=== PATIENT | male | born 1995 | race Caucasian/White ===

== ENCOUNTER → 2018-04-24 | Outpatient (CLI) | payer OTHER ==
--- NOTE | 2018-04-24 16:08 | US ---
EXAMINATION TYPE: US abdomen complete DATE OF EXAM: 04/24/2018 COMPARISON: NONE CLINICAL HISTORY: R10.11 RUQ ABD PAIN. Abd pain, nausea, vomiting EXAM MEASUREMENTS: Liver Length: 12.5 cm Gallbladder Wall: 0.2 cm CBD: 0.2 cm Spleen: 11.0 cm Right Kidney: 9.6 x 4.3 x 5.4 cm Left Kidney: 9.1 x 4.4 x 5.1 cm Pancreas: Obscured by bowel gas, visualized portions wnl Liver: wnl Gallbladder: wnl Evidence for sonographic Kaiser's sign: No CBD: wnl Spleen: wnl Right Kidney: No hydronephrosis or masses seen Left Kidney: No hydronephrosis or masses seen Upper IVC: wnl Abd Aorta: wnl IMPRESSION: 1. Normal abdomen ultrasound
== END | disposition home or self-care (01) ==
LOC: RADUSWWP 14:49
PROVIDERS: ATTEND Family Medicine
DX: R10.11 Right upper quadrant pain (principal)
CPT/HCPCS: 76700; 80053; 82150; 83690; 84550; 85025

== ENCOUNTER → 2018-05-01 | Outpatient (CLI) | payer OTHER ==
--- NOTE | 2018-05-01 10:02 | NM ---
EXAMINATION TYPE: NM hepatobiliary w EF DATE OF EXAM: 05/01/2018 COMPARISON: Correlation ultrasound 04/24/2018 HISTORY: 22-year-old male pain, cholecystitis TECHNIQUE: After the intravenous administration of 5.3 mCi Tc 99m Mebrofenin hepatobiliary scintigrap hy is performed. Immediate images post injection. FINDINGS: There is satisfactory initial accumulation of tracer by the liver. The gallbladder is visualized wit hin 8 minutes. The small bowel activity is noted after oral Ensure administration. At one hour 8 oun miriam of oral ensure plus is given to mimic CCK and gallbladder ejection fraction is calculated at 66 % , in the normal range. Therefore there is no scintigraphic evidence of cystic or common bile duct ob struction to suggest acute cholecystitis or gallbladder dyskinesia. IMPRESSION: Exam is within normal limits.
== END | disposition home or self-care (01) ==
LOC: RADNMMAIN 06:56
PROVIDERS: ATTEND Family Medicine
DX: K82.4 Cholesterolosis of gallbladder (principal)
CPT/HCPCS: 78226; A9537

== ENCOUNTER 2018-05-02 20:32 | Emergency (ER) | payer OTHER ==
[2018-05-02 20:48] VITALS: RESP 18
[2018-05-02] MEDS ORDERED: SODIUM CHLORIDE 0.9% 500 ML IV STA (21:03)
--- NOTE | 2018-05-02 21:11 | ED ---
Abdominal Pain HPI - General Chief Complaint: Abdominal Pain Stated Complaint: Abd pain Time Seen by Provider: 05/02/18 20:51 Source: patient Mode of arrival: ambulatory Limitations: no limitations - History of Present Illness Initial Comments: 22-year-old male patient presents to the emergency department today for evaluation of abdominal pain 2 weeks. Patient states that he has had 3 episodes of abdominal pain over the last couple of weeks. States that today the pain is lasted longer than it ever has. Patient describes the pain as a dull aching pain. States it initially was in his upper abdomen but now has moved to his lower abdomen. Patient states he has had decreased appetite today. He did have a vomiting episode earlier today. States that he had a very small bowel movement this morning that was "loose". Patient denies any fevers or chills. Patient's physician has been evaluating the pain patient did receive abdominal ultrasound and HIDA scan which were both negative for any acute abnormalities. Had labs done on 04/24/18 which were unremarkable. Patient is healthy with a benign past medical history. Denies any recent travel or sick contacts. Denies any recent change to his diet. Denies any weight loss. Patient was started on omeprazole 2 weeks ago, it has not helped. Patient denies any recent rash, shortness breath, chest pain, back pain, numbness, tingling, dizziness, weakness, hematuria, dysuria, urinary urgency, urinary frequency, headache, visual changes, or any other complaints. - Related Data Previous Rx's Medication Instructions Recorded Ondansetron [Zofran ODT] 4 mg PO Q8HR PRN #10 tab 05/02/18 Allergies Allergy/AdvReac Type Severity Reaction Status Date / Time No Known Allergies Allergy Verified 05/02/18 20:46 Review of Systems ROS Statement: Those systems with pertinent positive or pertinent negative responses have been documented in the HPI. ROS Other: All systems not noted in ROS Statement are negative. Past Medical History Past Medical History: No Reported History History of Any Multi-Drug Resistant Organisms: None Reported Past Surgical History: Orthopedic Surgery Past Psychological History: No Psychological Hx Reported Smoking Status: Never smoker Past Alcohol Use History: None Reported Past Drug Use History: None Reported General Exam Limitations: no limitations General appearance: alert, in no apparent distress, other (This is a well- developed, well-nourished adult male patient in no acute distress. Vital signs upon presentation are temperature 98.2F, pulse 112, respirations 18, blood pressure 121/82, pulse ox 98% on room air.) Eye exam: Present: normal appearance, PERRL, EOMI. Absent: scleral icterus, conjunctival injection, periorbital swelling ENT exam: Present: normal exam, normal oropharynx, mucous membranes moist Respiratory exam: Present: normal lung sounds bilaterally. Absent: respiratory distress, wheezes, rales, rhonchi, stridor Cardiovascular Exam: Present: regular rate, normal rhythm, normal heart sounds. Absent: systolic murmur, diastolic murmur, rubs, gallop, clicks GI/Abdominal exam: Present: soft, normal bowel sounds. Absent: distended, tenderness, guarding, rebound, rigid Neurological exam: Present: alert, oriented X3, CN II-XII intact Psychiatric exam: Present: normal affect, normal mood Skin exam: Present: warm, dry, intact, normal color. Absent: rash Course Vital Signs 05/02/18 05/02/18 20:46 23:06 Temperature 98.2 F 98.9 F Pulse Rate 112 H 78 Respiratory 18 18 Rate Blood Pressure 121/82 131/73 O2 Sat by Pulse 98 98 Oximetry Medical Decision Making - Medical Decision Making 22-year-old male patient presented to the emergency department today with complaints of abdominal pain. Physical examination was relatively unremarkable. Patient's abdomen was soft and nontender. Vital signs are stable. Labs reviewed and are unremarkable. X-ray of the abdomen showed no acute intra-abdominal abnormalities. Patient did have a HIDA scan yesterday which showed normal gallbladder function. He had abdominal ultrasound and labs performed within the last month which were also normal. I did discuss findings and results with the patient and his parent. I did discuss follow-up with GI specialty for further evaluation. Patient is currently taking omeprazole he is instructed to continue this as he has only been taking it for one week. Return parameters were discussed in detail. He verbalizes understanding and agreed with this plan. - Lab Data Result diagrams: 05/02/18 20:17 05/02/18 20:17 Lab Results 05/02/18 05/02/18 05/02/18 Range/Units 20:17 20:17 20:17 WBC 8.3 (4.0-11.0) k/uL RBC 5.31 (4.30-5.90) m/uL Hgb 15.0 (13.0-17.5) gm/dL Hct 44.2 (39.0-53.0) % MCV 83.2 (80.0-100.0) fL MCH 28.3 (25.0-35.0) pg MCHC 34.0 (31.0-37.0) g/dL RDW 12.9 (11.5-15.5) % Plt Count 228 (150-450) k/uL Neutrophils % 76 % Lymphocytes % 16 % Monocytes % 5 % Eosinophils % 1 % Basophils % 0 % Neutrophils # 6.3 (1.3-7.7) k/uL Lymphocytes # 1.3 (1.0-4.8) k/uL Monocytes # 0.4 (0-1.0) k/uL Eosinophils # 0.1 (0-0.7) k/uL Basophils # 0.0 (0-0.2) k/uL Sodium 141 (137-145) mmol/L Potassium 3.8 (3.5-5.1) mmol/L Chloride 105 (98-107) mmol/L Carbon Dioxide 24 (22-30) mmol/L Anion Gap 12 mmol/L BUN 11 (9-20) mg/dL Creatinine 0.80 (0.66-1.25) mg/dL Est GFR (CKD-EPI)AfAm >90 (>60 ml/min/1.73 sqM) Est GFR (CKD-EPI)NonAf >90 (>60 ml/min/1.73 sqM) Glucose 114 H (74-99) mg/dL Calcium 10.5 H (8.4-10.2) mg/dL Total Bilirubin 1.4 H (0.2-1.3) mg/dL AST 20 (17-59) U/L ALT 24 (21-72) U/L Alkaline Phosphatase 53 (38-126) U/L C-Reactive Protein <5.0 (<10.0) mg/L Total Protein 8.3 H (6.3-8.2) g/dL Albumin 5.3 H (3.5-5.0) g/dL Amylase 45 (30-110) U/L Lipase 77 (23-300) U/L Urine Color Light Yellow Urine Appearance Clear (Clear) Urine pH 8.0 (5.0-8.0) Ur Specific [place] 1.008 (1.001-1.035) Urine Protein Negative (Negative) Urine Glucose (UA) Negative (Negative) Urine Ketones Negative (Negative) Urine Blood Negative (Negative) Urine Nitrite Negative (Negative) Urine Bilirubin Negative (Negative) Urine Urobilinogen <2.0 (<2.0) mg/dL Ur Leukocyte Esterase Negative (Negative) - Radiology Data Radiology results: report reviewed, image reviewed KUB x-ray of the abdomen is obtained. There is normal bowel gas pattern. No suspicious air-fluid levels or differential air fluid levels are present. No free air is present. Psoas margins are normal. No organomegaly is present. Impression by Dr. Wilson shows unremarkable abdomen. Disposition Clinical Impression: Abdominal pain Disposition: HOME SELF-CARE Condition: Good Instructions: Abdominal Pain (ED) Additional Instructions: Start with clear liquid diet and advance as tolerated. Follow up with GI specialist for further evaluation. Follow-up with your primary care physician for recheck in 1-2 days. Return here immediately for any new, worsening, or concerning symptoms. Prescriptions: Ondansetron [Zofran ODT] 4 mg PO Q8HR PRN #10 tab PRN Reason: Nausea Is patient prescribed a controlled substance at d/c from ED?: No Referrals: Az Sorto MD [Primary Care Provider] - 1-2 days Reynaldo Rivera MD [STAFF PHYSICIAN] - 1-2 days Time of Disposition: 22:55
[2018-05-02 21:35] LABS: Appearance,Urine Clear (Clear); Basophils % (A) 0 %; Bilirubin,Urine Negative (Negative); Blood,Urine Negative (Negative); Color,Urine Light Yellow; Eosinophils # (A) 0.1 k/uL (0-0.7); Eosinophils % (A) 1 %; Glucose,Urine (UA) Negative (Negative); HCT 44.2 % (39.0-53.0); Ketones,Urine Negative (Negative); Leukocyte Esterase,Urine Negative (Negative); Lymphocytes # (A) 1.3 k/uL (1.0-4.8); Lymphocytes % (A) 16 %; MCH 28.3 pg (25.0-35.0); MCV 83.2 fL (80.0-100.0); Mean Platelet Volume 6.8; Monocytes # (A) 0.4 k/uL (0-1.0); Monocytes % (A) 5 %; Neutrophils # (A) 6.3 k/uL (1.3-7.7); Neutrophils % (A) 76 %; Nitrite,Urine Negative (Negative); Platelet Count 228 k/uL (150-450); Protein,Urine Negative (Negative); RBC 5.31 m/uL (4.30-5.90); RDW 12.9 % (11.5-15.5); Specific Gravity,Urine 1.008 (1.001-1.035); Urobilinogen,Urine <2.0 mg/dL (<2.0); WBC 8.3 k/uL (4.0-11.0)
[2018-05-02 21:46] LABS: ALT 24 U/L (21-72); AST 20 U/L (17-59); Albumin 5.3 g/dL (3.5-5.0); Alkaline Phosphatase 53 U/L (38-126); Amylase 45 U/L (30-110); Anion Gap 12 mmol/L; Blood Urea Nitrogen 11 mg/dL (9-20); C Reactive Protein <5.0 mg/L (<10.0); Calcium 10.5 mg/dL (8.4-10.2); Carbon Dioxide 24 mmol/L (22-30); Chloride 105 mmol/L (98-107); Glucose 114 mg/dL (74-99); Lipase 77 U/L (23-300); Potassium 3.8 mmol/L (3.5-5.1); Sodium 141 mmol/L (137-145); Total Bilirubin 1.4 mg/dL (0.2-1.3); Total Protein 8.3 g/dL (6.3-8.2)
--- NOTE | 2018-05-02 22:02 | XR ---
EXAMINATION TYPE: XR KUB DATE OF EXAM: 05/02/2018 COMPARISON: None INDICATION: Abdomen pain TECHNIQUE: Single view abdomen upright view FINDINGS: There is a normal bowel gas pattern. No suspicious air-fluid levels or differential air-fluid levels are present. No free air is present. Psoas margins are normal. No organomegaly is present. IMPRESSION: 1. Unremarkable Abdomen
[2018-05-02 23:07] VITALS: BP 131/73; PULSE 78; TEMP 98.9
== END 2018-05-02 23:07 | disposition home or self-care (01) ==
LOC: EC 20:32
DX: R10.9 Unspecified abdominal pain (principal); R11.10 Vomiting, unspecified; Z98.890 Other specified postprocedural states
CPT/HCPCS: 36415; 74018; 80053; 81003; 82150; 83690; 85025; 86140; 99284

== ENCOUNTER → 2018-05-08 | Outpatient (CLI) | payer OTHER ==
--- NOTE | 2018-05-08 10:47 | FL ---
EXAMINATION TYPE: FL small bowel follow through DATE OF EXAM: 05/08/2018 CLINICAL HISTORY: Abdominal pain with nausea. Pain comes and goes. No relief with antireflux medicati on. TECHNIQUE: A single contrast small bowel follow through is performed utilizing barium. A total of 31 seconds of fluoroscopic time was utilized during procedure. 9 images are saved to PACS. COMPARISON: Abdominal x-ray May 02, 2018. FINDINGS: Pouch Maker image of the abdomen shows no gross abnormality. The patient then drank contrast. The small bowel study shows normal transit to the colon in less than 40 minutes. There is a normal mucosal fold pattern throughout the small bowel. There is no evidenc e of any stricture or filling defect noted. The terminal ileum is spotted and appears unremarkable. IMPRESSION: Normal small bowel follow through.
== END | disposition home or self-care (01) ==
LOC: RADFLMAIN 08:56
DX: R10.9 Unspecified abdominal pain (principal)
CPT/HCPCS: 74250

== ENCOUNTER → 2024-03-29 | Outpatient (CLI) | payer BC ==
[2024-03-30 06:22] LABS: Alternaria alternata IgE <0.10 kU/L; Aspergillus fumagatus IgE <0.10 kU/L; Birch IgE <0.10 kU/L; Cat Epith & Dander IgE 0.75 kU/L; Cladosporian herbarum IgE <0.10 kU/L; Cockroach IgE <0.10 kU/L; Dermato. farinae IgE 6.93 kU/L; Dog Dander IgE <0.10 kU/L; Egg White IgE <0.10 kU/L; Maple (Box Elder) IgE <0.10 kU/L; Oak IgE <0.10 kU/L; Peanut IgE <0.10 kU/L; Ragweed,Common IgE 0.78 kU/L; Soybean IgE <0.10 kU/L
[2024-03-30 12:41] LABS: Pork IgE Class CLASS 0
[2024-03-30 12:42] LABS: Aureo. pullulans IgE <0.10 kU/L (<0.10); Aureo. pullulans IgE Class CLASS 0; Avocado Class CLASS 0; Banana IgE Class CLASS 0; Beef IgE <0.10 kU/L (<0.10); Beef IgE Class CLASS 0; Candida albicans IgE Class CLASS 0; Chicken IgE Class CLASS 0; Com. Pigweed IgE <0.10 kU/L (<0.10); Com. Pigweed IgE Class CLASS 0; Cottonwood IgE <0.10 kU/L (<0.10); English Plantain IgE Class CLASS 0; Epicoccum purpurascens Class CLASS 0; Epicoccum purpurascens IgE <0.10 kU/L (<0.10); Hazelnut IgE <0.10 kU/L (<0.10); Hazelnut IgE Class CLASS 0; Johnson Grass IgE Class CLASS 2; Kiwi IgE <0.10 kU/L (<0.10); Kiwi IgE Class CLASS 0; Lamb's Quarter IgE <0.10 kU/L (<0.10); Lamb's Quarter IgE Class CLASS 0; Latex IgE Class CLASS 0; Mucor racemosus IgE <0.10 kU/L (<0.10); Mucor racemosus IgE Class CLASS 0; Potato IgE <0.10 kU/L (<0.10); Potato IgE Class CLASS 0; Rhizopus nigricans IgE <0.10 kU/L (<0.10); Rhizopus nigricans IgE Class CLASS 0; S.rostrata/Helminth Class CLASS 0; S.rostrata/Helminth IgE <0.10 kU/L (<0.10); Sycamore(Mpl.Lf) IgE <0.10 kU/L (<0.10); Sycamore(Mpl.Lf) IgE Class CLASS 0; Timothy Grass IgE 5.41 kU/L (<0.10); Timothy Grass IgE Class CLASS 3; Walnut Tree IgE <0.10 kU/L (<0.10); Walnut Tree IgE Class CLASS 0; White Ash IgE Class CLASS 0; Yeast Bakers/Brew IgE <0.10 kU/L (<0.10); Yeast Bakers/Brew IgE Class CLASS 0
== END | disposition home or self-care (01) ==
LOC: LABWHC1 12:10
PROVIDERS: ATTEND Otolaryngology
DX: J30.89 Other allergic rhinitis (principal); B44.89 Other forms of aspergillosis; L50.0 Allergic urticaria
CPT/HCPCS: 36415; 82785; 86003